=== PATIENT | female | born 1940 | race Caucasian/White ===

== ENCOUNTER → 2016-09-24 | Outpatient (CLI) | payer MEDICARE ==
--- NOTE | ~2016-09-24 | CT57 ---
[facility] A Service of [facility] RADIOLOGY TEXT RESULTS PATIENT: CELINE SAGE LOCATION: [facility] : 42 UNIT #: [id number] AGE: [address]: Ravi Paredes MD SEX: F ORDER DR: [id number] [facility] [address] [place], [place] [address] [id number] O MR#: [id number] [facility] #: [id number] NAME: CELINE SAGE : 1940 SEX: F STUDY DATE/TIME: 09/24/2016 13:31 UNIT: [facility] ROOM: STUDY DESCRIPTION: CT Chest Wo Cont Attending Physician: Ravi Paredes M.D. Referring Physician: Ravi Paredes M.D. Ordering Physician: Ravi Paredes M.D. Primary Care Physician: Tamica Freitas M.D. MEDICAL IMAGING REPORT This report is preliminary unless electronic signature is present EXAM CT chest without contrast 09/24/2016 1331 hours CLINICAL HISTORY 75-year-old woman with 2-year history of shortness of air for a 6-month followup of abnormal chest CT. Patient states recent improvement in breathing. COMPARISON Chest CT 09/01/2015 and 02/27/2015. TECHNIQUE Routine helical noncontrasted images were obtained from the thoracic inlet through the adrenal glands. High-resolution protocol was performed with 1 mm thick images at full inspiration in the supine position at 10 mm intervals. Additional supine expiratory phase images were obtained at the arch, mao and bases. The patient was then turned to the prone position for similar high-resolution images through the lung bases only. Total exam DLP 985 mGy-cm. This CT exam was performed with one or more of the following radiation dose reduction techniques: automatic exposure control, adjustment of mA and/or kV according to patient size, and iterative reconstruction. FINDINGS The routine chest CT demonstrates a stable low-density lesion left lobe thyroid likely benign. There are small right paratracheal, precarinal and subcarinal nodes similar to or decreased from prior study. There is stable calcification of the tracheobronchial cartilage and mild coronary calcifications. There is no pericardial or pleural fluid. The routine lung window images demonstrate no definite residual nodules. Peripheral interstitial change is identified. High-resolution images demonstrate a nonspecific subpleural interstitial STS. [facility] A Service of [facility] RADIOLOGY TEXT RESULTS PATIENT: CELINE SAGE LOCATION: [facility] : 42 UNIT #: [id number] AGE: [address]: Ravi Paredes MD SEX: F ORDER DR: thickening in the periphery of the upper and lower lungs having a distribution similar to the prior study. There is no interval progression or regression. There is no definite honeycombing. No bronchiectasis. Expiratory phase images demonstrate mild air trapping. Prone images demonstrate stable subpleural interstitial thickening. IMPRESSION 1. Stable chest CT with nonspecific peripheral subpleural interstitial thickening in the upper mid and lower lungs fairly evenly distributed without evidence of honeycombing. The findings do not suggest UIP. Findings are similar to 09/01/2015. 2. No definite residual ground-glass densities are seen in the right upper lobe. 3. A stable left thyroid nodule. 4. Mild air trapping is demonstrated on the expiratory phase images. Dictated by... Erin Mason M.D. THIS IS AN ELECTRONICALLY VERIFIED REPORT Erin Mason M.D. at 09/27/2016 2:30 PM Juan Diego TD: 09/27/2016 10:31 JOB #: [id number] MEDICAL IMAGING REPORT Page 1 of 1 COPY
== END | disposition home or self-care (01) ==
LOC: CCAT 12:23
DX: R93.8 Abnormal findings on diagnostic imaging of other specified body structures (principal); R91.8 Other nonspecific abnormal finding of lung field; E04.1 Nontoxic single thyroid nodule
CPT/HCPCS: 71250